=== PATIENT | male | born 1970 | race Caucasian/White ===

== ENCOUNTER 2020-06-01 16:44 | Emergency (ER) | payer MEDICAID ==
[~2020-06-01] VITALS: Ht 172.7 cm; Wt 94.0 kg
[2020-06-01 16:59] VITALS: BP 150/95
--- NOTE | 2020-06-01 17:55 | NUR ---
PATIENT TO XRAY AT THIS TIME.
== END 2020-06-01 18:48 | disposition home or self-care (01) ==
LOC: ER 16:44
DX: S86.911A Strain of unspecified muscle(s) and tendon(s) at lower leg level, right leg, initial encounter (principal); V89.2XXA Person injured in unspecified motor-vehicle accident, traffic, initial encounter; Y93.89 Activity, other specified; Y92.410 Unspecified street and highway as the place of occurrence of the external cause; Y99.8 Other external cause status
CPT/HCPCS: 73564; 99283

== ENCOUNTER 2022-05-11 17:46 | Emergency (ER) | payer MEDICAID ==
[~2022-05-11] VITALS: Ht 170.2 cm; Wt 99.0 kg
[2022-05-11 17:51] VITALS: BP 169/86
[2022-05-11 18:27] LABS: CLARITY,URINE CLOUDY (Clear); COLOR,URINE YELLOW (Yellow); GLUCOSE, URINE NEGATIVE (Neg); KETONES,URINE 15 mg/dl (Neg); LEUKOCYTE ESTERASE ,URINE NEGATIVE (Neg); NITRITES, URINE POSITIVE (Neg); OCCULT BLOOD,URINE NEGATIVE (Neg); PH,URINE 5.5 (4.8-8.0); PROTEIN,URINE 30 mg/dl (Neg); UROBILINOGEN,URINE 0.2 E.U/dL (0.2-1.0)
[2022-05-11 18:31] LABS: UA COLLECTION TYPE CLN CATCH MIDSTREAM
[2022-05-11 18:33] LABS: MUCUS STRANDS MANY /LPF (Neg); SQUAMOUS EPITHELIAL CELL,UR MODERATE /LPF (FEW)
[2022-05-11 18:34] LABS: BACTERIA,URINE 2+ /HPF (Neg); HYALINE CASTS 0-3 /LPF (NEGATIVE); WBC,URINE TNTC /HPF (0-4)
[2022-05-11 18:35] LABS: RBC,URINE 0-2 /HPF (0-2)
[2022-05-11] MEDS ORDERED: CIPR-259 PO (19:28)
[2022-05-11] MEDS ORDERED: ciprofloxacin 250mg tablet PO ONE (19:30)
--- NOTE | 2022-05-11 19:48 | NUR ---
PO MED GIVEN
--- NOTE | 2022-05-12 09:46 | NUR ---
PT CAME IN STATING THAT THE RX THAT HE RECEIVED AT YESTERDAY'S VISIT WAS SENT TO [facility] [address] AND THAT SHOP IS CLOSED TODAY. PT REQUESTED THAT IT BE CALLED INTO THE [facility] [address] [address]. CIPRO 500MG; 1 TAB PO BID [phone] DAYS #14 WAS CALLED TO [facility] ON [address] [address] REQUESTED.
== END 2022-05-11 19:49 | disposition home or self-care (01) ==
LOC: ER 17:46
DX: N39.0 Urinary tract infection, site not specified (principal); Z79.1 Long term (current) use of non-steroidal anti-inflammatories (NSAID)
CPT/HCPCS: 81001; 87077; 87088; 87186; 99283